=== PATIENT | female | born 1995 | race Asian ===

== ENCOUNTER 2024-02-16 07:46 | Emergency (ER) | payer BC ==
[2024-02-16 07:51] VITALS: TEMP 98.4; BMI 23.2
[2024-02-16] MEDS: SODIUM CHLORIDE 0.9% 500 ML INFUS.BAG IV ONE (09:48)
[2024-02-16 09:57] LABS: BASO % 0.6 % (0-2.0); EOS % 1.2 % (0-4.5); HEMATOCRIT 37.9 % (32.4-45.2); HEMOGLOBIN 12.5 GM/dL (10.7-15.3); LYMPH % 28.6 % (8-40); MCH 27.6 pg (25.7-33.7); MEAN CELL VOLUME 83.6 fl (80-96); MEAN PLT VOLUME 8.3 fl (7.5-11.1); MONO % 7.2 % (3.8-10.2); NEUT % 62.4 % (42.8-82.8); PLATELET COUNT 308 10^3/uL (134-434); RBC 4.54 M/mm3 (3.60-5.2); RDW 15.1 % (11.6-15.6); WHITE BLOOD COUNT 12.9 K/mm3 (4.0-10.0)
[2024-02-16 10:10] LABS: POTASSIUM 4.2 mmol/L (3.5-5.1)
[2024-02-16 10:12] LABS: ALBUMIN 3.7 g/dl (3.4-5.0); BLOOD UREA NITROGEN 8.4 mg/dL (7-18); CALCIUM 9.2 mg/dL (8.5-10.1)
[2024-02-16 10:15] LABS: CREATININE 0.7 mg/dL (0.55-1.3)
[2024-02-16 10:18] LABS: TOT PROT 7.4 g/dl (6.4-8.2)
[2024-02-16 11:26] LABS: EPI CELLS >36 /uL (0-25.1); HYALINE CASTS 10 /uL (0-3.1); URINE APPEARANCE CLOUDY; URINE BACTERIA 1289 /uL (0-1359); URINE BILIRUBIN 1+ (NEGATIVE); URINE COLOR DK YELLOW; URINE GLUCOSE (UA) NEGATIVE (NEGATIVE); URINE KETONE 2+ (NEGATIVE); URINE LEUK ESTERASE TRACE (NEGATIVE); URINE NITRITE NEGATIVE (NEGATIVE); URINE PROTEIN TRACE (NEGATIVE); URINE RBC 22 /uL (0-23.9); URINE WBC 117 /uL (0-25.8)
[2024-02-16 12:12] LABS: MAGNESIUM 2.2 mg/dL (1.8-2.4)
[2024-02-16 12:16] LABS: PHOSPHOROUS 3.7 mg/dL (2.5-4.9)
[2024-02-16] MEDS: DEXTROSE 5%-NORMAL SALINE 1,000 ML IV ONE (12:40)
[2024-02-16 15:18] VITALS: BP 121/70; PULSE 80; RESP 14
== END 2024-02-16 15:19 | disposition home or self-care (01) ==
LOC: JER 07:46
PROC: 3E0337Z Introduction of Electrolytic and Water Balance Substance into Peripheral Vein, Percutaneous Approach (ICD-10-PCS; principal; 2024-02-16)
DX: O21.9 Vomiting of pregnancy, unspecified (principal); O99.511 Diseases of the respiratory system complicating pregnancy, first trimester; J31.0 Chronic rhinitis; R05.1 Acute cough; Z3A.01 Less than 8 weeks gestation of pregnancy; O99.611 Diseases of the digestive system complicating pregnancy, first trimester; K59.00 Constipation, unspecified; Z20.822 Contact with and (suspected) exposure to COVID-19
CPT/HCPCS: 0241U-QW; 36415; 76817-TC; 80053; 81003; 83690; 83735; 84100; 84702; 85025; 87086; 99284-25

== ENCOUNTER 2024-09-22 10:20 | Inpatient (IN) | payer BC ==
[2024-09-22 11:43] LABS: ABSOLUTE IMMATURE GRANULOCYTES 0.23 x10^3/uL (0.0-0.031); BASOPHILS # 0.07 x10^3/uL (0.01-0.08); EOSINOPHIL % 0.7 % (0.7-5.8); EOSINOPHILS # 0.09 x10^3/uL (0.04-0.36); HEMATOCRIT 31.8 % (34.1-44.9); HEMOGLOBIN 9.4 g/dL (11.2-15.7); MCHC 29.6 g/dl (32.2-35.5); MEAN CELL VOLUME 73.4 fl (79.4-94.8); MEAN PLT VOLUME 12.1 fl (9.4-12.3); MONOCYTE # 0.68 x10^3/uL (0.24-0.86); MONOCYTE % 5.3 % (4.7-12.5); PLATELET COUNT 272 x10^3/uL (182-369); RDW 16.4 % (12.1-16.5); Reticulocyte % 1.6 % (0.5-1.7)
[2024-09-22 11:50] LABS: INR 0.95 (0.83-1.09); PROTHROMBIN TIME (PATIENT) 10.4 SEC (9.7-13.0)
[2024-09-22 11:53] LABS: ACTIVATED PTT 24.2 SECONDS (25.2-36.5)
[2024-09-22 12:00] LABS: POTASSIUM 3.7 mmol/L (3.5-5.1)
[2024-09-22 12:02] LABS: ALBUMIN 2.5 g/dl (3.4-5.0); BLOOD UREA NITROGEN 9.5 mg/dL (7-18); CALCIUM 8.8 mg/dL (8.5-10.1)
[2024-09-22 12:05] LABS: BILIRUBIN,DIRECT 0.2 mg/dL (0.0-0.2); CREATININE 0.7 mg/dL (0.55-1.3)
[2024-09-22 12:06] LABS: URIC ACID 4.7 mg/dL (2.6-7.2)
[2024-09-22 12:07] LABS: BILIRUBIN,TOTAL 0.7 mg/dL (0.2-1); TOT PROT 6.4 g/dl (6.4-8.2)
[2024-09-22 12:12] LABS: POTASSIUM 3.7 mmol/L (3.5-5.1)
[2024-09-22 12:13] LABS: BLOOD UREA NITROGEN 9.3 mg/dL (7-18); CALCIUM 8.9 mg/dL (8.5-10.1)
[2024-09-22 12:17] LABS: CREATININE 0.6 mg/dL (0.55-1.3)
[2024-09-22 13:00] VITALS: BMI 23.2
[2024-09-22] MEDS: ELECTROLYTE-148 SOLN 1,000 ML IV SCH (13:00)
[2024-09-22] MEDS ORDERED: OXYTOCIN 30 UNITS in 0.9% NS 30 UNIT/500 ML INFUS.BAG IVPB ONE (13:14)
[2024-09-22] MEDS: OXYTOCIN 30 UNITS in 0.9% NS 30 UNIT/500 ML INFUS.BAG IVPB SCH (13:20)
[2024-09-22 15:12] LABS: COCAINE, UR NEGATIVE (NEGATIVE); METHADONE, UR NEGATIVE (NEGATIVE); OPIATES, URI NEGATIVE (NEGATIVE); PHENCYCLIDINE,URINE NEGATIVE (NEGATIVE); URINE BARBITURATES NEGATIVE (NEGATIVE); URINE BENZODIAZEPINES NEGATIVE (NEGATIVE)
[2024-09-22 15:16] LABS: URINE AMPHETAMINES NEGATIVE (NEGATIVE)
[2024-09-22 15:43] LABS: HEPATITIS B SURFACE AG MATERN NON-REACTIVE (NONREACTIVE)
[2024-09-22 16:10] LABS: HCV DIAGNOSTIC IN-HOUSE W/RFLX NON-REACTIVE (NONREACTIVE)
[2024-09-22 16:11] LABS: HIV INTERPRETATION NEGATIVE (NEGATIVE)
[2024-09-23] MEDS ORDERED: FENTANYL/BUPIVACAINE/NS/PF - PCEA - 50 ML DISP.SYRIN EP ONE ×3 (02:05→09:48)
[2024-09-23] MEDS ORDERED: FENTANYL CITRATE/PF 50 MCG/ML VIAL ONE (02:08)
[2024-09-23] MEDS ORDERED: BUPIVACAINE HCL/PF 0.25% (2.5MG/ML) 10 ML VIAL ONE (02:08)
[2024-09-23] MEDS: FENTANYL/BUPIVACAINE/NS/PF - PCEA - 50 ML DISP.SYRIN EP SCH ×2 (02:30→06:55)
[2024-09-23] MEDS ORDERED: NALOXONE HCL 0.4 MG/ML VIAL IVPUSH PRN (02:53)
[2024-09-23] MEDS: BUTORPHANOL TARTRATE 2 MG/ML VIAL IVPB ONE (05:11)
[2024-09-23] MEDS: PROMETHAZINE HCL 25 MG/1 ML VIAL IVPB ONE (05:11)
[2024-09-23] MEDS ORDERED: ONDANSETRON 4 MG/2 ML VIAL ONE (08:58)
[2024-09-23] MEDS: ONDANSETRON 4 MG/2 ML VIAL IVPUSH ONE (09:06)
[2024-09-23] MEDS ORDERED: LIDOCAINE HCL 1% PRESERVATIVE FREE - 30ML VIAL ONE (09:53)
[2024-09-23] MEDS ORDERED: OXYTOCIN 20 UNITS in 0.9% NS 20 UNIT/1,000 ML INFUS.BAG IV ONE ×2 (09:53→12:30)
[2024-09-23] MEDS: OXYTOCIN 20 UNITS in 0.9% NS 20 UNIT/1,000 ML INFUS.BAG IV SCH (12:15)
[2024-09-23] MEDS ORDERED: ceFAZolin SODIUM 1 GM VIAL ONE (12:37)
[2024-09-23] MEDS ORDERED: WITCH HAZEL 50% (TUCKS) 40 PAD/JAR PAD TP PRN (13:09)
[2024-09-23] MEDS ORDERED: BISACODYL 10 MG SUPP.RECT RC PRN (13:09)
[2024-09-23] MEDS ORDERED: METHYLERGONOVINE MALEATE 0.2 MG/1 ML AMP IM PRN (13:09)
[2024-09-23 13:16] LABS: CORD BASE EXCESS -11.4 mmol/L (0-2); CORD HCO3 17.7 mmHg (20-29); CORD PCO2 51.2 mmHg (30-78); CORD pH 7.157 (7.14-7.44)
[2024-09-23 13:16] LABS: CORD HCO3 18.8 mmHg (20-29); CORD PCO2 39.2 mmHg (30-78); CORD pH 7.299 (7.14-7.44)
[2024-09-23] MEDS ORDERED: MAGNESIUM 4GM/H20 - 4 GM/100 ML IVPB IVPB ONE (13:34)
[2024-09-23] MEDS: MAGNESIUM 4GM/H20 - 4 GM/100 ML IVPB IVPB ONE (13:40)
[2024-09-23] MEDS: LACTATED RINGERS SOLUTION 1,000 ML IV ONE (13:40)
[2024-09-23] MEDS ORDERED: ACETAMINOPHEN 325 MG TABLET (FP) ONE (14:34)
[2024-09-23] MEDS: ACETAMINOPHEN 325 MG TABLET (FP) PO PRN (14:39)
[2024-09-23] MEDS ORDERED: oxyCODONE HCL 5 MG TABLET ONE ×2 (15:20→21:06)
[2024-09-23] MEDS: oxyCODONE HCL 5 MG TABLET PO PRN (15:21)
[2024-09-23] MEDS ORDERED: MAGNESIUM SULFATE 20GM/500ML - 20 GM/500 ML INFUS.BAG ONE (15:31)
[2024-09-23] MEDS: MAGNESIUM SULFATE 20GM/500ML - 20 GM/500 ML INFUS.BAG IVPB SCH (15:40)
[2024-09-23] MEDS: BENZOCAINE 20% 57 GM BOTTLE TP PRN (15:45)
[2024-09-23 15:47] LABS: HEMOGLOBIN 7.2 g/dL (11.2-15.7); MEAN CELL VOLUME 73.8 fl (79.4-94.8); MEAN PLT VOLUME 11.5 fl (9.4-12.3); PLATELET COUNT 226 x10^3/uL (182-369); RDW 16.7 % (12.1-16.5)
[2024-09-23] MEDS ORDERED: IBUPROFEN 600 MG TABLET (FP) PO ONE (16:27)
[2024-09-23] MEDS: IBUPROFEN 600 MG TABLET (FP) PO PRN (16:28)
[2024-09-23] MEDS: ELECTROLYTE-148 SOLN 1,000 ML IV SCH (20:05)
[2024-09-23 20:37] LABS: HEMATOCRIT 21.5 % (34.1-44.9); HEMOGLOBIN 6.5 g/dL (11.2-15.7); MCHC 30.2 g/dl (32.2-35.5); MEAN CELL VOLUME 73.6 fl (79.4-94.8); MEAN PLT VOLUME 11.9 fl (9.4-12.3); PLATELET COUNT 225 x10^3/uL (182-369); RDW 16.7 % (12.1-16.5)
[2024-09-24] MEDS ORDERED: MAGNESIUM SULFATE 20GM/500ML - 20 GM/500 ML INFUS.BAG ONE (01:01)
[2024-09-24] MEDS ORDERED: oxyCODONE HCL 5 MG TABLET ONE ×2 (02:52→10:42)
[2024-09-24 07:39] LABS: HEMATOCRIT 29.9 % (34.1-44.9); HEMOGLOBIN 9.3 g/dL (11.2-15.7); MCHC 31.1 g/dl (32.2-35.5); MEAN CELL VOLUME 77.1 fl (79.4-94.8); MEAN PLT VOLUME 11.8 fl (9.4-12.3); PLATELET COUNT 202 x10^3/uL (182-369); RDW 16.7 % (12.1-16.5)
[2024-09-24 08:37] LABS: MONOCYTE # 0.66 x10^3/uL (0.24-0.86)
[2024-09-24] MEDS: SENNOSIDES/DOCUSATE COMBO (SENNA PLUS) TABLET (UD) PO PRN (20:36)
[2024-09-25 07:09] LABS: ABSOLUTE IMMATURE GRANULOCYTES 0.45 x10^3/uL (0.0-0.031); BASOPHILS # 0.09 x10^3/uL (0.01-0.08); EOSINOPHIL % 1.3 % (0.7-5.8); EOSINOPHILS # 0.26 x10^3/uL (0.04-0.36); HEMATOCRIT 29.8 % (34.1-44.9); HEMOGLOBIN 9.1 g/dL (11.2-15.7); MCHC 30.5 g/dl (32.2-35.5); MEAN CELL VOLUME 77.8 fl (79.4-94.8); MEAN PLT VOLUME 10.9 fl (9.4-12.3); MONOCYTE # 1.19 x10^3/uL (0.24-0.86); MONOCYTE % 6.2 % (4.7-12.5); PLATELET COUNT 215 x10^3/uL (182-369); RDW 16.2 % (12.1-16.5)
[2024-09-25] MEDS: BENZOCAINE 28 GM HEMORRHOIDAL OINTMENT TP PRN (20:54)
[2024-09-26 08:25] VITALS: BP 133/96; PULSE 94; RESP 17; TEMP 97.9
== END 2024-09-26 11:25 | disposition home or self-care (01) | DRG 806 ==
LOC: JLDR 10:20 → J3W 09-24 11:45
PROVIDERS: ADMIT Obstetrics & Gynecology; ATTEND Obstetrics & Gynecology
PROC: 10D07Z6 Extraction of Products of Conception, Vacuum, Via Natural or Artificial Opening (ICD-10-PCS; principal; 2024-09-23)
PROC: 0KQM0ZZ Repair Perineum Muscle, Open Approach (ICD-10-PCS; 2024-09-23)
PROC: 0W8NXZZ Division of Female Perineum, External Approach (ICD-10-PCS; 2024-09-23)
PROC: 30233N1 Transfusion of Nonautologous Red Blood Cells into Peripheral Vein, Percutaneous Approach (ICD-10-PCS; 2024-09-23)
DX: O13.4 Gestational [pregnancy-induced] hypertension without significant proteinuria, complicating childbirth (principal); D62 Acute posthemorrhagic anemia; Z37.0 Single live birth; O24.424 Gestational diabetes mellitus in childbirth, insulin controlled; O70.1 Second degree perineal laceration during delivery; O99.02 Anemia complicating childbirth; Z3A.37 37 weeks gestation of pregnancy
CPT/HCPCS: 36415; 36430; 36600; 59409; 80048; 80053; 80076; 80307; 82340; 82570; 82803; 82962; 82977; 83010; 83735; 84156; 84450; 84460; 84550; 85025; 85027; 85610; 85730; 86780; 86803; 86850; 86900; 86901; 86922; 87340; 87389; P9058